=== PATIENT | female | born 1995 | race American Indian/Alaskan Native ===

== ENCOUNTER 2021-09-05 22:32 | Outpatient (CLI) | payer MEDICAID, OTHER ==
[2021-09-05 23:12] VITALS: BP 111/80
[2021-09-06] MEDS: LACTATED RINGERS 1,000 ML IV SCH ×2 (00:11→01:14)
[2021-09-06 00:36] LABS: Basophils % (Auto) 0.1 % (0.0-1.8); Eosinophils % (Auto) 0.2 % (0.0-4.3); Hematocrit 35.1 % (30.3-42.9); Hemoglobin 11.4 gm/dl (10.1-14.3); Lymphocytes # (Auto) 2.5 K/mm3 (1.2-5.4); Lymphocytes % (Auto) 22.6 % (13.4-35.0); Mean Corpuscular HGB Conc 33 % (30-34); Mean Corpuscular Volume 81 fl (79-97); Monocytes # (Auto) 1.2 K/mm3 (0.0-0.8); Monocytes % (Auto) 11.1 % (0.0-7.3); Platelet Count 196 K/mm3 (140-440); Red Blood Count 4.34 M/mm3 (3.65-5.03); Red Cell Distribution Width 16.3 % (13.2-15.2)
[2021-09-06 00:42] LABS: Amphetamine Screen,Urine PRESUMPTIVE NEGATIVE; Bacteria,Urine 1+ /HPF (Negative); Benzodiazepines Screen,Urine PRESUMPTIVE NEGATIVE; Bilirubin,Urine NEG (Negative); Blood,Urine NEG (Negative); Cannabinoid Screen,Urine PRESUMPTIVE NEGATIVE; Cocaine Screen,Urine PRESUMPTIVE NEGATIVE; Color,Urine Yellow (Yellow); Methadone Screen,Urine PRESUMPTIVE NEGATIVE; Opiate Screen,Urine PRESUMPTIVE NEGATIVE; Protein,Urine <15 mg/dL mg/dL (Negative); Urobilinogen,Urine < 2.0 mg/dL (<2.0)
--- NOTE | 2021-09-06 02:32 | Ultrasound Report ---
ULTRASOUND OBSTETRIC LIMITED; BIOPHYSICAL PROFILE INDICATION / CLINICAL INFORMATION: SD, location of placenta, integrity of placenta... Clinical Gestational Age (GA) in weeks, days: 37, 6 TECHNIQUE: Transabdominal. COMPARISON: None available. FINDINGS: HEART RATE (beats per minute): 157 AMNIOTIC FLUID INDEX (cm) = 9.3 cm (normal = 7-24 cm) PRESENTATION: Cephalic. ADDITIONAL FINDINGS: Right lateral placenta. Placenta is grade 1. BREATHING MOVEMENT = 2 GROSS BODY MOVEMENT = 2 TONE = 2 QUALITATIVE AMNIOTIC FLUID VOLUME = 2 TOTAL BIOPHYSICAL SCORE = 8/8 IMPRESSION: 1. Right lateral grade 1 placenta. 2. 37 week 6 day gestation with heart rate of 157 bpm. Normal SD. 3. Normal biophysical profile. Signer Name: Rafa Torres II, MD Signed: 09/06/2021 2:28 AM Workstation Name: [id number]
== END 2021-09-06 03:43 | disposition home or self-care (01) ==
LOC: TRG 22:32 → APU 22:35 → TRG 09-06 03:43
PROVIDERS: ATTEND Obstetrics & Gynecology
DX: O36.8130 Decreased fetal movements, third trimester, not applicable or unspecified (principal); Z3A.37 37 weeks gestation of pregnancy
CPT/HCPCS: 36415; 76815; 76819; 80307; 81001; 85025; 86850; 86900; 86901; J7120

== ENCOUNTER 2021-09-20 00:25 | Inpatient (IN) | payer MEDICAID ==
[2021-09-20 02:03] LABS: Basophils % (Auto) 0.2 % (0.0-1.8); Eosinophils % (Auto) 0.1 % (0.0-4.3); Hematocrit 36.2 % (30.3-42.9); Hemoglobin 11.6 gm/dl (10.1-14.3); Lymphocytes # (Auto) 2.5 K/mm3 (1.2-5.4); Lymphocytes % (Auto) 20.7 % (13.4-35.0); Mean Corpuscular HGB Conc 32 % (30-34); Mean Corpuscular Volume 81 fl (79-97); Monocytes % (Auto) 8.2 % (0.0-7.3); Platelet Count 208 K/mm3 (140-440); Red Blood Count 4.49 M/mm3 (3.65-5.03); Red Cell Distribution Width 16.1 % (13.2-15.2)
[2021-09-20] MEDS ORDERED: LACTATED RINGERS 1,000 ML ONE (02:30)
[2021-09-20 02:52] LABS: Bilirubin,Urine NEG (Negative); Blood,Urine SM (Negative); Color,Urine Yellow (Yellow); Mucus,Urine FEW /HPF; Protein,Urine <15 mg/dL mg/dL (Negative); RBC,Urine < 1.0 /HPF (0.0-6.0); Urobilinogen,Urine < 2.0 mg/dL (<2.0)
[2021-09-20 03:21] LABS: Amphetamine Screen,Urine Negative; Benzodiazepines Screen,Urine Negative; Cannabinoid Screen,Urine Negative; Cocaine Screen,Urine Negative; Methadone Screen,Urine Negative; Opiate Screen,Urine Negative
--- NOTE | 2021-09-20 03:45 | Ultrasound Report ---
ULTRASOUND OBSTETRIC LIMITED ULTRASOUND BIOPHYSICAL PROFILE INDICATION / CLINICAL INFORMATION: wellbeing. Clinical Gestational Age (GA) in weeks, days: 39 weeks 6 days TECHNIQUE: Transabdominal. COMPARISON: 09/06/2021 FINDINGS: BREATHING MOVEMENT = 2 GROSS BODY MOVEMENT = 2 TONE = 2 QUALITATIVE AMNIOTIC FLUID VOLUME = 0 TOTAL BIOPHYSICAL SCORE = 6/8 HEART RATE (beats per minute): 157 AMNIOTIC FLUID INDEX (cm) = 3.2 (normal = 7-24 cm) PRESENTATION: Cephalic. ADDITIONAL FINDINGS: Placenta is located right lateral, grade 3. No evidence of abruption. IMPRESSION: 1. Biophysical Score = 6/8 2. Oligohydramnios with SD of 3.2 cm 2. Single viable IUP,cephalic presentation Signer Name: Nicki Winslow MD Signed: 09/20/2021 3:40 AM Workstation Name: [id number]
[2021-09-20] MEDS ORDERED: ACETAMINOPHEN 325 MG TAB PO PRN ×2 (04:00→17:08)
[2021-09-20] MEDS ORDERED: AMPICILLIN/NS 2 GM/100 ML 2 GM/100 ML BAG IV ONE (04:00)
[2021-09-20] MEDS ORDERED: LIDOCAINE (2%) 20 MG/1 ML VIAL 20 ML MDV INFILTRATI ONE ×3 (04:00→16:44)
[2021-09-20] MEDS ORDERED: ePHEDrine SULFATE 50 MG/1 ML INJ IV PRN (04:00)
[2021-09-20] MEDS ORDERED: NalbUPHINE 10 MG/1 ML INJ IV PRN (04:00)
[2021-09-20] MEDS ORDERED: LOPERAMIDE 2 MG CAP PO PRN (04:00)
[2021-09-20] MEDS ORDERED: OXYTOCIN 10 UNIT/1 ML INJ IM PRN (04:00)
[2021-09-20] MEDS ORDERED: miSOPROStol 200 MCG TAB PR PRN (04:00)
[2021-09-20] MEDS ORDERED: METHYLERGONOVINE MALEATE 0.2 MG/ML VIAL IM PRN (04:00)
[2021-09-20] MEDS ORDERED: MINERAL OIL 30 ML ORAL LIQD PO PRN (04:00)
[2021-09-20] MEDS ORDERED: OXYTOCIN DRIP 30 UNITS/500 ML BAG IV SCH ×2 (04:00→08:00)
[2021-09-20] MEDS ORDERED: CARBOPROST TROMETHAMINE 250 MCG/1 ML INJ IM PRN (04:00)
[2021-09-20] MEDS ORDERED: TERBUTALINE 1 MG/1 ML INJ SUB-Q PRN (04:00)
--- NOTE | 2021-09-20 04:10 | History and Physical Report ---
History of Present Illness Date of examination: 09/20/21 Date of admission: 09/20/2021 Chief complaint: Contractions History of present illness: 26 year old presents to L&D with complaint of contractions. Patient states contractions started at 9:30 PM last night. Patient denies leaking of fluid. She reports small amount of bloody show. She reports active movement. Patient states she receives care at [facility] but no records are available. Will request records. EDC 09/21/21 per patient report. LMP 12/15/20. labs were drawn upon admission. US in triage showed SD of 3.2 cm and BPP 6/8. US shows no sign of abruption. 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 denies: smoking, alcohol abuse, prescription drug abuse, IV drug use - Obstetrical History Expected Date of Delivery: 09/21/21 Actual Gestation: 39 Week(s) 6 Day(s) : 1 Para: 0 Hx # Term Pregnancies: 0 Number of Pregnancies: 0 Spontaneous Abortions: 0 Induced : 0 Number of Living Children: 0 Medications and Allergies Allergies Allergy/AdvReac Type Severity Reaction Status Date / Time No Known Allergies Allergy Verified 09/20/21 00:54 Home Medications Medication Instructions Recorded Confirmed Last Taken Type No Known Home Medications [No 09/05/21 09/05/21 Unknown History Reported Home Medications] Active Meds: Active Medications Acetaminophen (Acetaminophen 325 Mg Tab) 650 mg PO Q4H PRN PRN Reason: Pain, Mild (1-3) Carboprost Tromethamine (Carboprost Tromethamine 250 Mcg/1 Ml Inj) 250 mcg IM ONCE PRN PRN Reason: Uterine Bleeding Ephedrine Sulfate (Ephedrine Sulfate 50 Mg/1 Ml Inj) 10 mg IV Q2M PRN PRN Reason: Hypotension Fentanyl (Fentanyl 100 Mcg/2 Ml Inj) 100 mcg IV Q2H PRN PRN Reason: Pain,Severe (7-10) LABOR PAIN Lactated Ringer's (Lactated Ringers) 1,000 mls @ 125 mls/hr IV DIRECT JAMEE Oxytocin/Sodium Chloride (Pitocin/Ns 30 Unit/500ml) 30 units in 500 mls @ 40 mls/hr IV TITR JAMEE; Protocol Ampicillin Sodium (Ampicillin/Ns 2 Gm/100 Ml) 2 gm in 100 mls @ 100 mls/hr IV ONCE ONE; Protocol Stop: 09/20/21 04:59 Ampicillin Sodium (Ampicillin/Ns 1 Gm/50 Ml) 1 gm in 50 mls @ 100 mls/hr IV Q4H JAMEE; Protocol Lidocaine (Lidocaine (2%) 20 Mg/1 Ml Vial 20 Ml Mdv) 20 ml INFILTRATI ONCE ONE Stop: 09/20/21 04:01 Loperamide HCl (Loperamide 2 Mg Cap) 2 mg PO ONCE PRN PRN Reason: give with Hemabate Methylergonovine Maleate (Methylergonovine Maleate 0.2 Mg/Ml Vial) 0.2 mg IM ONCE PRN PRN Reason: Uterine Bleeding Mineral Oil (Mineral Oil 30 Ml Oral Liqd) 30 ml PO QHS PRN PRN Reason: Constipation Misoprostol (Misoprostol 200 Mcg Tab) 800 mcg MI ONCE PRN PRN Reason: Uterine Bleeding Nalbuphine HCl (Nalbuphine 10 Mg/1 Ml Inj) 10 mg IV Q2H PRN PRN Reason: Pain, Moderate (4-6) Oxytocin (Oxytocin 10 Unit/1 Ml Inj) 10 unit IM ONCE PRN PRN Reason: Uterine Bleeding Terbutaline Sulfate (Terbutaline 1 Mg/1 Ml Inj) 0.25 mg SUB-Q ONCE PRN PRN Reason: Hyperstimulation/Hypertonicity Review of Systems All systems: negative (contractions) - Vital Signs Vital signs: Vital Signs Pulse Ox 100 09/06/21 03:09 Temp Pulse Resp BP Pulse Ox 85 112/71 98 09/20/21 04:03 09/20/21 00:50 09/20/21 04:03 - Physical Exam Abdomen: Positive: normal appearance, soft. Negative: distention, tenderness, guarding, rigidity Genitourinary (Female): Positive: normal external genitalia, normal perenium. Negative: perineal/vulvar lesions Vagina: Positive: normal moisture Uterus: Positive: enlarged. Negative: tender Anus/Rectum: Positive: normal perianal skin Extremities: Negative: tenderness, edema - Obstetrical FHR: category 2 (variable FHR decelerations with rapid return to normal FHR baseline with moderate variability) Uterine Contraction Monitor Mode: External Cervical Dilatation: 0 Cervical Effacement Percentage: 50 station: -2 Uterine Contraction Pattern: Irregular Uterine Contraction Intensity: Mild Results Result Diagrams: 09/20/21 01:45 Abnormal lab results 09/20/21 Range/Units 01:45 WBC 11.8 H (4.5-11.0) K/mm3 MCH 26 L (28-32) pg RDW 16.1 H (13.2-15.2) % [place] % (Auto) 8.2 H (0.0-7.3) % [place] # (Auto) 1.0 H (0.0-0.8) K/mm3 Seg Neutrophils % 70.8 H (40.0-70.0) % Seg Neutrophils # 8.4 H (1.8-7.7) K/mm3 All other labs normal. Assessment and Plan A: at 39 weeks, 6 days gestation. Oligohydramnios. BPP 6/8. No records available. GBS unknown. Category 2 FHR tracing. P: Admit. Continuous EFM. Request/obtain records. US to calculate EDC/EGA, EFW. Draw labs. IV hydration. Lateral positioning. Will consult with re: this patient.
[2021-09-20] MEDS: LACTATED RINGERS 1,000 ML IV SCH ×2 (04:52→15:58)
--- NOTE | 2021-09-20 05:01 | Event Note ---
Date: 09/20/21 for EGA this morning shows EGA of 35 weeks, 1 day. Requesting records. Continuous EFM and IV hydration until records are obtained. Consulted with Dr. Lim re: this patient.
--- NOTE | 2021-09-20 05:08 | Ultrasound Report ---
ULTRASOUND OBSTETRIC LIMITED INDICATION / CLINICAL INFORMATION: EDC/EGA, EFW. Clinical Gestational Age (GA) in weeks, days: 39 weeks 6 days TECHNIQUE: Transabdominal. COMPARISON: 09/20/2021 Limited OB ultrasound FINDINGS: NUMBER: Single PRESENTATION: cephalic PLACENTA: Right lateral and free of the os. AMNIOTIC FLUID VOLUME: decreased AMNIOTIC FLUID INDEX (SD) in cm (if measured): 3.2 cm MEASUREMENTS: - Biparietal Diameter = 8.85 cm = 35 weeks, 5 days - Head Circumference = 30.55 cm = 34 weeks, 0 days - Abdominal Circumference = 32.19 cm = 36 weeks, 1 days - Femur Length = 6.69 cm = 34 weeks, 3 days - Estimated Weight (in grams, if calculated): 2670 g (5 lbs. 14 oz.) - Heart Rate (beats per minute): 158 ADDITIONAL FINDINGS: None. PERCENTILE ESTIMATED WEIGHT (if calculated): AVERAGE ULTRASOUND AGE (AUA) in weeks, days = 35 weeks 1 day IMPRESSION: 1. Single intrauterine with AUA of 35 weeks, 1 days 2. As noted on earlier OB ultrasound, there is oligohydramnios with an SD of 3.2. 3. There is a 4 week discrepancy between clinical dates and sonographic dates. Signer Name: Nicki Winslow MD Signed: 09/20/2021 5:04 AM Workstation Name: [id number]
[2021-09-20] MEDS ORDERED: BETAMET ACET/BETAMET NA PH 6 MG/ML INJ 5 ML MDV IM ONE (05:31)
[2021-09-20 06:58] LABS: Hepatitis C Virus Antibody Non-Reactive (NonReactive)
--- NOTE | 2021-09-20 07:22 | Progress Note ---
Subjective - Subjective Date of service: 09/20/21 Interval history: Olig Suspected early chorio IUGR plan for delivery Crystal Lim MD Objective - Vital Signs Vital Signs: Vital Signs - 12hr 09/20/21 09/20/21 09/20/21 00:49 00:50 00:54 Temperature Pulse Rate 107 H 98 H 102 H Blood Pressure 112/71 O2 Sat by Pulse 100 99 Oximetry O2 Sat by Pulse Oximetry [ Throughout] 09/20/21 09/20/21 09/20/21 00:59 01:04 01:09 Temperature Pulse Rate 96 H 106 H 90 Blood Pressure O2 Sat by Pulse 99 97 100 Oximetry O2 Sat by Pulse Oximetry [ Throughout] 09/20/21 09/20/21 09/20/21 01:14 01:19 01:24 Temperature Pulse Rate 84 88 89 Blood Pressure O2 Sat by Pulse 95 98 100 Oximetry O2 Sat by Pulse Oximetry [ Throughout] 09/20/21 09/20/21 09/20/21 01:29 01:34 01:39 Temperature Pulse Rate 86 84 100 H Blood Pressure O2 Sat by Pulse 100 100 98 Oximetry O2 Sat by Pulse Oximetry [ Throughout] 09/20/21 09/20/21 09/20/21 01:44 01:49 01:54 Temperature Pulse Rate 99 H 82 83 Blood Pressure O2 Sat by Pulse 98 100 98 Oximetry O2 Sat by Pulse Oximetry [ Throughout] 09/20/21 09/20/21 09/20/21 01:59 02:04 02:09 Temperature Pulse Rate 79 85 79 Blood Pressure O2 Sat by Pulse 100 98 99 Oximetry O2 Sat by Pulse Oximetry [ Throughout] 09/20/21 09/20/21 09/20/21 02:14 02:19 02:24 Temperature Pulse Rate 78 79 81 Blood Pressure O2 Sat by Pulse 99 100 99 Oximetry O2 Sat by Pulse Oximetry [ Throughout] 09/20/21 09/20/21 09/20/21 02:29 02:43 02:48 Temperature Pulse Rate 86 91 H 90 Blood Pressure O2 Sat by Pulse 97 100 99 Oximetry O2 Sat by Pulse Oximetry [ Throughout] 09/20/21 09/20/21 09/20/21 02:53 02:58 03:03 Temperature Pulse Rate 73 77 67 Blood Pressure O2 Sat by Pulse 99 98 99 Oximetry O2 Sat by Pulse Oximetry [ Throughout] 09/20/21 09/20/21 09/20/21 03:08 03:13 03:18 Temperature Pulse Rate 80 88 75 Blood Pressure O2 Sat by Pulse 98 99 98 Oximetry O2 Sat by Pulse Oximetry [ Throughout] 09/20/21 09/20/21 09/20/21 03:23 03:28 03:33 Temperature Pulse Rate 76 85 97 H Blood Pressure O2 Sat by Pulse 98 99 98 Oximetry O2 Sat by Pulse Oximetry [ Throughout] 09/20/21 09/20/21 09/20/21 03:38 03:43 03:48 Temperature Pulse Rate 82 82 86 Blood Pressure O2 Sat by Pulse 100 99 98 Oximetry O2 Sat by Pulse Oximetry [ Throughout] 09/20/21 09/20/21 09/20/21 03:53 03:58 04:03 Temperature Pulse Rate 79 79 85 Blood Pressure O2 Sat by Pulse 99 98 98 Oximetry O2 Sat by Pulse Oximetry [ Throughout] 09/20/21 09/20/21 09/20/21 04:36 04:41 04:43 Temperature Pulse Rate 77 75 78 Blood Pressure 128/79 O2 Sat by Pulse 99 98 Oximetry O2 Sat by Pulse Oximetry [ Throughout] 09/20/21 09/20/21 09/20/21 04:46 04:51 04:53 Temperature 99.2 F Pulse Rate 86 80 Blood Pressure O2 Sat by Pulse 99 99 Oximetry O2 Sat by Pulse 99 Oximetry [ Throughout] 09/20/21 09/20/21 09/20/21 04:56 05:01 05:06 Temperature Pulse Rate 88 98 H 91 H Blood Pressure O2 Sat by Pulse 99 98 98 Oximetry O2 Sat by Pulse Oximetry [ Throughout] 09/20/21 09/20/21 09/20/21 05:11 05:16 05:21 Temperature Pulse Rate 86 81 93 H Blood Pressure O2 Sat by Pulse 98 98 98 Oximetry O2 Sat by Pulse Oximetry [ Throughout] 09/20/21 09/20/21 09/20/21 05:26 05:31 05:36 Temperature Pulse Rate 97 H 85 93 H Blood Pressure O2 Sat by Pulse 98 98 98 Oximetry O2 Sat by Pulse Oximetry [ Throughout] 09/20/21 09/20/21 09/20/21 05:41 05:46 05:51 Temperature Pulse Rate 85 91 H 91 H Blood Pressure O2 Sat by Pulse 98 98 98 Oximetry O2 Sat by Pulse Oximetry [ Throughout] 09/20/21 09/20/21 09/20/21 05:56 06:01 06:06 Temperature Pulse Rate 87 91 H 87 Blood Pressure O2 Sat by Pulse 98 98 98 Oximetry O2 Sat by Pulse Oximetry [ Throughout] 09/20/21 09/20/21 09/20/21 06:11 06:16 06:21 Temperature Pulse Rate 76 87 89 Blood Pressure O2 Sat by Pulse 98 98 98 Oximetry O2 Sat by Pulse Oximetry [ Throughout] 09/20/21 09/20/21 09/20/21 06:26 06:31 06:36 Temperature Pulse Rate 73 87 98 H Blood Pressure O2 Sat by Pulse 99 98 97 Oximetry O2 Sat by Pulse Oximetry [ Throughout] 09/20/21 09/20/21 09/20/21 06:41 06:46 06:51 Temperature Pulse Rate 85 79 88 Blood Pressure O2 Sat by Pulse 98 98 97 Oximetry O2 Sat by Pulse Oximetry [ Throughout] 09/20/21 09/20/21 09/20/21 06:56 07:01 07:06 Temperature Pulse Rate 86 82 71 Blood Pressure O2 Sat by Pulse 98 99 98 Oximetry O2 Sat by Pulse Oximetry [ Throughout] 09/20/21 09/20/21 07:11 07:16 Temperature Pulse Rate 78 83 Blood Pressure O2 Sat by Pulse 99 98 Oximetry O2 Sat by Pulse Oximetry [ Throughout] - Labs Labs: Abnormal Labs 09/20/21 01:45 WBC 11.8 H MCH 26 L RDW 16.1 H [place] % (Auto) 8.2 H [place] # (Auto) 1.0 H Seg Neutrophils % 70.8 H Seg Neutrophils # 8.4 H Laboratory Results - last 24 hr 09/20/21 09/20/21 09/20/21 01:45 01:45 05:27 WBC 11.8 H RBC 4.49 Hgb 11.6 Hct 36.2 MCV 81 MCH 26 L MCHC 32 RDW 16.1 H Plt Count 208 Lymph % (Auto) 20.7 [place] % (Auto) 8.2 H Eos % (Auto) 0.1 Baso % (Auto) 0.2 Lymph # (Auto) 2.5 [place] # (Auto) 1.0 H Eos # (Auto) 0.0 Baso # (Auto) 0.0 Seg Neutrophils % 70.8 H Seg Neutrophils # 8.4 H Hemoglobin A1c 5.5 Urine Color Urine Turbidity Urine pH Ur Specific [place] Urine Protein Urine Glucose (UA) Urine Ketones Urine Blood Urine Nitrite Urine Bilirubin Urine Urobilinogen Ur Leukocyte Esterase Urine WBC (Auto) Urine RBC (Auto) U Epithel Cells (Auto) Urine Mucus Urine Opiates Screen Urine Methadone Screen Ur Barbiturates Screen Ur Phencyclidine Scrn Ur Amphetamines Screen U Benzodiazepines Scrn Urine Cocaine Screen U Marijuana (THC) Screen Drugs of Abuse Note Syphilis IgG/IgM Ab Hep Bs Antigen Hepatitis C Antibody HIV 1&2 Antibody Rapid HIV P24 Antigen Rubella IgG Antibody Blood Type B POSITIVE Antibody Screen Negative 09/20/21 09/20/21 09/20/21 05:27 05:27 05:27 WBC RBC Hgb Hct MCV MCH MCHC RDW Plt Count Lymph % (Auto) [place] % (Auto) Eos % (Auto) Baso % (Auto) Lymph # (Auto) [place] # (Auto) Eos # (Auto) Baso # (Auto) Seg Neutrophils % Seg Neutrophils # Hemoglobin A1c Urine Color Urine Turbidity Urine pH Ur Specific [place] Urine Protein Urine Glucose (UA) Urine Ketones Urine Blood Urine Nitrite Urine Bilirubin Urine Urobilinogen Ur Leukocyte Esterase Urine WBC (Auto) Urine RBC (Auto) U Epithel Cells (Auto) Urine Mucus Urine Opiates Screen Urine Methadone Screen Ur Barbiturates Screen Ur Phencyclidine Scrn Ur Amphetamines Screen U Benzodiazepines Scrn Urine Cocaine Screen U Marijuana (THC) Screen Drugs of Abuse Note Syphilis IgG/IgM Ab Nonreactive Hep Bs Antigen Non-reactive Hepatitis C Antibody Non-reactive HIV 1&2 Antibody Rapid Non react HIV P24 Antigen Non react Rubella IgG Antibody Immune Blood Type Antibody Screen 09/20/21 09/20/21 Unknown Unknown WBC RBC Hgb Hct MCV MCH MCHC RDW Plt Count Lymph % (Auto) [place] % (Auto) Eos % (Auto) Baso % (Auto) Lymph # (Auto) [place] # (Auto) Eos # (Auto) Baso # (Auto) Seg Neutrophils % Seg Neutrophils # Hemoglobin A1c Urine Color Yellow Urine Turbidity Clear Urine pH 6.0 Ur Specific [place] 1.004 Urine Protein <15 mg/dl Urine Glucose (UA) Neg Urine Ketones Neg Urine Blood Sm Urine Nitrite Neg Urine Bilirubin Neg Urine Urobilinogen < 2.0 Ur Leukocyte Esterase Neg Urine WBC (Auto) 1.0 Urine RBC (Auto) < 1.0 U Epithel Cells (Auto) 2.0 Urine Mucus Few Urine Opiates Screen Negative Urine Methadone Screen Negative Ur Barbiturates Screen Negative Ur Phencyclidine Scrn Negative Ur Amphetamines Screen Negative U Benzodiazepines Scrn Negative Urine Cocaine Screen Negative U Marijuana (THC) Screen Negative Drugs of Abuse Note Disclamer Syphilis IgG/IgM Ab Hep Bs Antigen Hepatitis C Antibody HIV 1&2 Antibody Rapid HIV P24 Antigen Rubella IgG Antibody Blood Type Antibody Screen
--- NOTE | 2021-09-20 07:39 | Event Note ---
Date: 09/20/21 FHR 170s with moderate variability. Maternal temp. 99.1. Changed antibiotics to ampicillin and gentamicin. IV fluid bolus and tylenol ordered. ROM plus done (pt. has denied LOF). Pitocin for augmentation of labor. Small amount of pink vaginal discharge noted on rom plus swab. Consulted with Dr. Lim re: tachycardia and pink discharge and interventions done.
[2021-09-20] MEDS ORDERED: GENTAMICIN 100 MG in SODIUM CHLORIDE 0.9% 100 ML IV SCH ×2 (07:45→07:52)
[2021-09-20] MEDS ORDERED: LACTATED RINGERS 500 ML IV ONE (08:00)
[2021-09-20] MEDS ORDERED: AMPICILLIN/NS 2 GM/100 ML 2 GM/100 ML BAG IV SCH (08:00)
--- NOTE | 2021-09-20 08:47 | Progress Note ---
Subjective - Subjective Date of service: 09/20/21 Interval history: FHT Cat 2 with moderate variability cervix 280/-1 Continue current management Crystal Lim MD Objective - Vital Signs Vital Signs: Vital Signs - 12hr 09/20/21 09/20/21 09/20/21 00:49 00:50 00:54 Temperature Pulse Rate 107 H 98 H 102 H Respiratory Rate Blood Pressure 112/71 Blood Pressure [Left] O2 Sat by Pulse 100 99 Oximetry O2 Sat by Pulse Oximetry [ Throughout] 09/20/21 09/20/21 09/20/21 00:59 01:04 01:09 Temperature Pulse Rate 96 H 106 H 90 Respiratory Rate Blood Pressure Blood Pressure [Left] O2 Sat by Pulse 99 97 100 Oximetry O2 Sat by Pulse Oximetry [ Throughout] 09/20/21 09/20/21 09/20/21 01:14 01:19 01:24 Temperature Pulse Rate 84 88 89 Respiratory Rate Blood Pressure Blood Pressure [Left] O2 Sat by Pulse 95 98 100 Oximetry O2 Sat by Pulse Oximetry [ Throughout] 09/20/21 09/20/21 09/20/21 01:29 01:34 01:39 Temperature Pulse Rate 86 84 100 H Respiratory Rate Blood Pressure Blood Pressure [Left] O2 Sat by Pulse 100 100 98 Oximetry O2 Sat by Pulse Oximetry [ Throughout] 09/20/21 09/20/21 09/20/21 01:44 01:49 01:54 Temperature Pulse Rate 99 H 82 83 Respiratory Rate Blood Pressure Blood Pressure [Left] O2 Sat by Pulse 98 100 98 Oximetry O2 Sat by Pulse Oximetry [ Throughout] 09/20/21 09/20/21 09/20/21 01:59 02:04 02:09 Temperature Pulse Rate 79 85 79 Respiratory Rate Blood Pressure Blood Pressure [Left] O2 Sat by Pulse 100 98 99 Oximetry O2 Sat by Pulse Oximetry [ Throughout] 09/20/21 09/20/21 09/20/21 02:14 02:19 02:24 Temperature Pulse Rate 78 79 81 Respiratory Rate Blood Pressure Blood Pressure [Left] O2 Sat by Pulse 99 100 99 Oximetry O2 Sat by Pulse Oximetry [ Throughout] 09/20/21 09/20/21 09/20/21 02:29 02:43 02:48 Temperature Pulse Rate 86 91 H 90 Respiratory Rate Blood Pressure Blood Pressure [Left] O2 Sat by Pulse 97 100 99 Oximetry O2 Sat by Pulse Oximetry [ Throughout] 09/20/21 09/20/21 09/20/21 02:53 02:58 03:03 Temperature Pulse Rate 73 77 67 Respiratory Rate Blood Pressure Blood Pressure [Left] O2 Sat by Pulse 99 98 99 Oximetry O2 Sat by Pulse Oximetry [ Throughout] 09/20/21 09/20/21 09/20/21 03:08 03:13 03:18 Temperature Pulse Rate 80 88 75 Respiratory Rate Blood Pressure Blood Pressure [Left] O2 Sat by Pulse 98 99 98 Oximetry O2 Sat by Pulse Oximetry [ Throughout] 09/20/21 09/20/21 09/20/21 03:23 03:28 03:33 Temperature Pulse Rate 76 85 97 H Respiratory Rate Blood Pressure Blood Pressure [Left] O2 Sat by Pulse 98 99 98 Oximetry O2 Sat by Pulse Oximetry [ Throughout] 09/20/21 09/20/21 09/20/21 03:38 03:43 03:48 Temperature Pulse Rate 82 82 86 Respiratory Rate Blood Pressure Blood Pressure [Left] O2 Sat by Pulse 100 99 98 Oximetry O2 Sat by Pulse Oximetry [ Throughout] 09/20/21 09/20/21 09/20/21 03:53 03:58 04:03 Temperature Pulse Rate 79 79 85 Respiratory Rate Blood Pressure Blood Pressure [Left] O2 Sat by Pulse 99 98 98 Oximetry O2 Sat by Pulse Oximetry [ Throughout] 09/20/21 09/20/21 09/20/21 04:36 04:41 04:43 Temperature Pulse Rate 77 75 78 Respiratory Rate Blood Pressure 128/79 Blood Pressure [Left] O2 Sat by Pulse 99 98 Oximetry O2 Sat by Pulse Oximetry [ Throughout] 09/20/21 09/20/21 09/20/21 04:46 04:51 04:53 Temperature 99.2 F Pulse Rate 86 80 Respiratory Rate Blood Pressure Blood Pressure [Left] O2 Sat by Pulse 99 99 Oximetry O2 Sat by Pulse 99 Oximetry [ Throughout] 09/20/21 09/20/21 09/20/21 04:56 05:01 05:06 Temperature Pulse Rate 88 98 H 91 H Respiratory Rate Blood Pressure Blood Pressure [Left] O2 Sat by Pulse 99 98 98 Oximetry O2 Sat by Pulse Oximetry [ Throughout] 09/20/21 09/20/21 09/20/21 05:11 05:16 05:21 Temperature Pulse Rate 86 81 93 H Respiratory Rate Blood Pressure Blood Pressure [Left] O2 Sat by Pulse 98 98 98 Oximetry O2 Sat by Pulse Oximetry [ Throughout] 09/20/21 09/20/21 09/20/21 05:26 05:31 05:36 Temperature Pulse Rate 97 H 85 93 H Respiratory Rate Blood Pressure Blood Pressure [Left] O2 Sat by Pulse 98 98 98 Oximetry O2 Sat by Pulse Oximetry [ Throughout] 09/20/21 09/20/21 09/20/21 05:41 05:46 05:51 Temperature Pulse Rate 85 91 H 91 H Respiratory Rate Blood Pressure Blood Pressure [Left] O2 Sat by Pulse 98 98 98 Oximetry O2 Sat by Pulse Oximetry [ Throughout] 09/20/21 09/20/21 09/20/21 05:56 06:01 06:06 Temperature Pulse Rate 87 91 H 87 Respiratory Rate Blood Pressure Blood Pressure [Left] O2 Sat by Pulse 98 98 98 Oximetry O2 Sat by Pulse Oximetry [ Throughout] 09/20/21 09/20/21 09/20/21 06:11 06:16 06:21 Temperature Pulse Rate 76 87 89 Respiratory Rate Blood Pressure Blood Pressure [Left] O2 Sat by Pulse 98 98 98 Oximetry O2 Sat by Pulse Oximetry [ Throughout] 09/20/21 09/20/21 09/20/21 06:26 06:31 06:36 Temperature Pulse Rate 73 87 98 H Respiratory Rate Blood Pressure Blood Pressure [Left] O2 Sat by Pulse 99 98 97 Oximetry O2 Sat by Pulse Oximetry [ Throughout] 09/20/21 09/20/21 09/20/21 06:41 06:46 06:51 Temperature Pulse Rate 85 79 88 Respiratory Rate Blood Pressure Blood Pressure [Left] O2 Sat by Pulse 98 98 97 Oximetry O2 Sat by Pulse Oximetry [ Throughout] 09/20/21 09/20/21 09/20/21 06:56 07:01 07:06 Temperature Pulse Rate 86 82 71 Respiratory Rate Blood Pressure Blood Pressure [Left] O2 Sat by Pulse 98 99 98 Oximetry O2 Sat by Pulse Oximetry [ Throughout] 09/20/21 09/20/21 09/20/21 07:11 07:16 07:21 Temperature Pulse Rate 78 83 76 Respiratory Rate Blood Pressure Blood Pressure [Left] O2 Sat by Pulse 99 98 98 Oximetry O2 Sat by Pulse Oximetry [ Throughout] 0309/20/21 09/20/21 07:26 07:31 07:36 Temperature Pulse Rate 89 84 90 Respiratory Rate Blood Pressure Blood Pressure [Left] O2 Sat by Pulse 97 99 98 Oximetry O2 Sat by Pulse Oximetry [ Throughout] 09/20/21 09/20/21 09/20/21 07:41 07:46 07:51 Temperature Pulse Rate 87 74 78 Respiratory Rate Blood Pressure Blood Pressure [Left] O2 Sat by Pulse 98 98 98 Oximetry O2 Sat by Pulse Oximetry [ Throughout] 09/20/21 09/20/21 09/20/21 07:56 08:19 08:21 Temperature Pulse Rate 90 73 91 H Respiratory Rate Blood Pressure 116/65 Blood Pressure [Left] O2 Sat by Pulse 98 98 Oximetry O2 Sat by Pulse Oximetry [ Throughout] 09/20/21 09/20/21 09/20/21 08:24 08:29 08:34 Temperature 97.9 F Pulse Rate 68 73 90 Respiratory 16 Rate Blood Pressure Blood Pressure 116/65 [Left] O2 Sat by Pulse 98 99 98 Oximetry O2 Sat by Pulse 99 Oximetry [ Throughout] 09/20/21 09/20/21 08:39 08:44 Temperature Pulse Rate 77 73 Respiratory Rate Blood Pressure Blood Pressure [Left] O2 Sat by Pulse 99 99 Oximetry O2 Sat by Pulse Oximetry [ Throughout] - Labs Labs: Abnormal Labs 09/20/21 01:45 WBC 11.8 H MCH 26 L RDW 16.1 H [place] % (Auto) 8.2 H [place] # (Auto) 1.0 H Seg Neutrophils % 70.8 H Seg Neutrophils # 8.4 H Laboratory Results - last 24 hr 09/20/21 09/20/21 09/20/21 01:45 01:45 05:27 WBC 11.8 H RBC 4.49 Hgb 11.6 Hct 36.2 MCV 81 MCH 26 L MCHC 32 RDW 16.1 H Plt Count 208 Lymph % (Auto) 20.7 [place] % (Auto) 8.2 H Eos % (Auto) 0.1 Baso % (Auto) 0.2 Lymph # (Auto) 2.5 [place] # (Auto) 1.0 H Eos # (Auto) 0.0 Baso # (Auto) 0.0 Seg Neutrophils % 70.8 H Seg Neutrophils # 8.4 H Hemoglobin A1c 5.5 Urine Color Urine Turbidity Urine pH Ur Specific Delia Urine Protein Urine Glucose (UA) Urine Ketones Urine Blood Urine Nitrite Urine Bilirubin Urine Urobilinogen Ur Leukocyte Esterase Urine WBC (Auto) Urine RBC (Auto) U Epithel Cells (Auto) Urine Mucus Urine Opiates Screen Urine Methadone Screen Ur Barbiturates Screen Ur Phencyclidine Scrn Ur Amphetamines Screen U Benzodiazepines Scrn Urine Cocaine Screen U Marijuana (THC) Screen Drugs of Abuse Note Syphilis IgG/IgM Ab Hep Bs Antigen Hepatitis C Antibody HIV 1&2 Antibody Rapid HIV P24 Antigen Rubella IgG Antibody Blood Type B POSITIVE Antibody Screen Negative 09/20/21 09/20/21 09/20/21 05:27 05:27 05:27 WBC RBC Hgb Hct MCV MCH MCHC RDW Plt Count Lymph % (Auto) [place] % (Auto) Eos % (Auto) Baso % (Auto) Lymph # (Auto) [place] # (Auto) Eos # (Auto) Baso # (Auto) Seg Neutrophils % Seg Neutrophils # Hemoglobin A1c Urine Color Urine Turbidity Urine pH Ur Specific Delia Urine Protein Urine Glucose (UA) Urine Ketones Urine Blood Urine Nitrite Urine Bilirubin Urine Urobilinogen Ur Leukocyte Esterase Urine WBC (Auto) Urine RBC (Auto) U Epithel Cells (Auto) Urine Mucus Urine Opiates Screen Urine Methadone Screen Ur Barbiturates Screen Ur Phencyclidine Scrn Ur Amphetamines Screen U Benzodiazepines Scrn Urine Cocaine Screen U Marijuana (THC) Screen Drugs of Abuse Note Syphilis IgG/IgM Ab Nonreactive Hep Bs Antigen Non-reactive Hepatitis C Antibody Non-reactive HIV 1&2 Antibody Rapid Non react HIV P24 Antigen Non react Rubella IgG Antibody Immune Blood Type Antibody Screen 09/20/21 09/20/21 Unknown Unknown WBC RBC Hgb Hct MCV MCH MCHC RDW Plt Count Lymph % (Auto) [place] % (Auto) Eos % (Auto) Baso % (Auto) Lymph # (Auto) [place] # (Auto) Eos # (Auto) Baso # (Auto) Seg Neutrophils % Seg Neutrophils # Hemoglobin A1c Urine Color Yellow Urine Turbidity Clear Urine pH 6.0 Ur Specific Delia 1.004 Urine Protein <15 mg/dl Urine Glucose (UA) Neg Urine Ketones Neg Urine Blood Sm Urine Nitrite Neg Urine Bilirubin Neg Urine Urobilinogen < 2.0 Ur Leukocyte Esterase Neg Urine WBC (Auto) 1.0 Urine RBC (Auto) < 1.0 U Epithel Cells (Auto) 2.0 Urine Mucus Few Urine Opiates Screen Negative Urine Methadone Screen Negative Ur Barbiturates Screen Negative Ur Phencyclidine Scrn Negative Ur Amphetamines Screen Negative U Benzodiazepines Scrn Negative Urine Cocaine Screen Negative U Marijuana (THC) Screen Negative Drugs of Abuse Note Disclamer Syphilis IgG/IgM Ab Hep Bs Antigen Hepatitis C Antibody HIV 1&2 Antibody Rapid HIV P24 Antigen Rubella IgG Antibody Blood Type Antibody Screen
[2021-09-20] MEDS ORDERED: AMPICILLIN/NS 1 GM/50 ML 1 GM/50 ML BAG IV SCH (09:00)
[2021-09-20] MEDS ORDERED: GENTAMICIN/NS 100 MG/100 ML 100 MG/100 ML BAG IV SCH ×2 (09:00)
[2021-09-20 09:40] LABS: Albumin 3.2 g/dL (3.9-5); Blood Urea Nitrogen 7 mg/dL (7-17); Calcium 8.9 mg/dL (8.4-10.2); Hemolysis Index 3
[2021-09-20 09:51] LABS: Alanine Aminotransferase < 5 units/L (7-56); BUN/Creatinine Ratio 14
[2021-09-20] MEDS: fentaNYL 100 MCG/2 ML INJ IV PRN ×2 (11:55→14:25)
--- NOTE | 2021-09-20 15:32 | Progress Note ---
Subjective - Subjective Date of service: 09/20/21 Interval history: /0 toco: Q4 minutes will allow for passive descent expect Continue current management Crystal Lim MD Objective - Vital Signs Vital Signs: Vital Signs - 12hr 09/20/21 09/20/21 09/20/21 03:33 03:38 03:43 Temperature Pulse Rate 97 H 82 82 Respiratory Rate Blood Pressure Blood Pressure [Left] O2 Sat by Pulse 98 100 99 Oximetry O2 Sat by Pulse Oximetry [ Throughout] 09/20/21 09/20/21 09/20/21 03:48 03:53 03:58 Temperature Pulse Rate 86 79 79 Respiratory Rate Blood Pressure Blood Pressure [Left] O2 Sat by Pulse 98 99 98 Oximetry O2 Sat by Pulse Oximetry [ Throughout] 09/20/21 09/20/21 09/20/21 04:03 04:36 04:41 Temperature Pulse Rate 85 77 75 Respiratory Rate Blood Pressure Blood Pressure [Left] O2 Sat by Pulse 98 99 98 Oximetry O2 Sat by Pulse Oximetry [ Throughout] 09/20/21 09/20/21 09/20/21 04:43 04:46 04:51 Temperature Pulse Rate 78 86 80 Respiratory Rate Blood Pressure 128/79 Blood Pressure [Left] O2 Sat by Pulse 99 99 Oximetry O2 Sat by Pulse Oximetry [ Throughout] 09/20/21 09/20/21 09/20/21 04:53 04:56 05:01 Temperature 99.2 F Pulse Rate 88 98 H Respiratory Rate Blood Pressure Blood Pressure [Left] O2 Sat by Pulse 99 98 Oximetry O2 Sat by Pulse 99 Oximetry [ Throughout] 09/20/21 09/20/21 09/20/21 05:06 05:11 05:16 Temperature Pulse Rate 91 H 86 81 Respiratory Rate Blood Pressure Blood Pressure [Left] O2 Sat by Pulse 98 98 98 Oximetry O2 Sat by Pulse Oximetry [ Throughout] 09/20/21 09/20/21 09/20/21 05:21 05:26 05:31 Temperature Pulse Rate 93 H 97 H 85 Respiratory Rate Blood Pressure Blood Pressure [Left] O2 Sat by Pulse 98 98 98 Oximetry O2 Sat by Pulse Oximetry [ Throughout] 09/20/21 09/20/21 09/20/21 05:36 05:41 05:46 Temperature Pulse Rate 93 H 85 91 H Respiratory Rate Blood Pressure Blood Pressure [Left] O2 Sat by Pulse 98 98 98 Oximetry O2 Sat by Pulse Oximetry [ Throughout] 09/20/21 09/20/21 09/20/21 05:51 05:56 06:01 Temperature Pulse Rate 91 H 87 91 H Respiratory Rate Blood Pressure Blood Pressure [Left] O2 Sat by Pulse 98 98 98 Oximetry O2 Sat by Pulse Oximetry [ Throughout] 09/20/21 09/20/21 09/20/21 06:06 06:11 06:16 Temperature Pulse Rate 87 76 87 Respiratory Rate Blood Pressure Blood Pressure [Left] O2 Sat by Pulse 98 98 98 Oximetry O2 Sat by Pulse Oximetry [ Throughout] 09/20/21 09/20/21 09/20/21 06:21 06:26 06:31 Temperature Pulse Rate 89 73 87 Respiratory Rate Blood Pressure Blood Pressure [Left] O2 Sat by Pulse 98 99 98 Oximetry O2 Sat by Pulse Oximetry [ Throughout] 09/20/21 09/20/21 09/20/21 06:36 06:41 06:46 Temperature Pulse Rate 98 H 85 79 Respiratory Rate Blood Pressure Blood Pressure [Left] O2 Sat by Pulse 97 98 98 Oximetry O2 Sat by Pulse Oximetry [ Throughout] 09/20/21 09/20/21 09/20/21 06:51 06:56 07:01 Temperature Pulse Rate 88 86 82 Respiratory Rate Blood Pressure Blood Pressure [Left] O2 Sat by Pulse 97 98 99 Oximetry O2 Sat by Pulse Oximetry [ Throughout] 09/20/21 09/20/21 09/20/21 07:06 07:11 07:16 Temperature Pulse Rate 71 78 83 Respiratory Rate Blood Pressure Blood Pressure [Left] O2 Sat by Pulse 98 99 98 Oximetry O2 Sat by Pulse Oximetry [ Throughout] 09/20/21 09/20/21 09/20/21 07:21 07:26 07:31 Temperature Pulse Rate 76 89 84 Respiratory Rate Blood Pressure Blood Pressure [Left] O2 Sat by Pulse 98 97 99 Oximetry O2 Sat by Pulse Oximetry [ Throughout] 09/20/21 09/20/21 09/20/21 07:36 07:41 07:46 Temperature Pulse Rate 90 87 74 Respiratory Rate Blood Pressure Blood Pressure [Left] O2 Sat by Pulse 98 98 98 Oximetry O2 Sat by Pulse Oximetry [ Throughout] 09/20/21 09/20/21 09/20/21 07:51 07:56 08:19 Temperature Pulse Rate 78 90 73 Respiratory Rate Blood Pressure Blood Pressure [Left] O2 Sat by Pulse 98 98 98 Oximetry O2 Sat by Pulse Oximetry [ Throughout] 09/20/21 09/20/21 09/20/21 08:21 08:24 08:29 Temperature 97.9 F Pulse Rate 91 H 68 73 Respiratory 16 Rate Blood Pressure 116/65 Blood Pressure 116/65 [Left] O2 Sat by Pulse 98 99 Oximetry O2 Sat by Pulse 99 Oximetry [ Throughout] 09/20/21 09/20/21 09/20/21 08:34 08:39 08:44 Temperature Pulse Rate 90 77 73 Respiratory Rate Blood Pressure Blood Pressure [Left] O2 Sat by Pulse 98 99 99 Oximetry O2 Sat by Pulse Oximetry [ Throughout] 09/20/21 09/20/21 09/20/21 08:49 08:54 08:59 Temperature Pulse Rate 71 79 76 Respiratory Rate Blood Pressure Blood Pressure [Left] O2 Sat by Pulse 99 97 99 Oximetry O2 Sat by Pulse Oximetry [ Throughout] 09/20/21 09/20/21 09/20/21 09:04 09:09 09:14 Temperature Pulse Rate 91 H 87 88 Respiratory Rate Blood Pressure Blood Pressure [Left] O2 Sat by Pulse 98 98 98 Oximetry O2 Sat by Pulse Oximetry [ Throughout] 09/20/21 09/20/21 09/20/21 09:19 09:24 09:29 Temperature Pulse Rate 83 76 70 Respiratory Rate Blood Pressure Blood Pressure [Left] O2 Sat by Pulse 99 99 99 Oximetry O2 Sat by Pulse Oximetry [ Throughout] 09/20/21 09/20/21 09/20/21 09:34 09:39 09:44 Temperature Pulse Rate 82 80 92 H Respiratory Rate Blood Pressure Blood Pressure [Left] O2 Sat by Pulse 98 97 97 Oximetry O2 Sat by Pulse Oximetry [ Throughout] 09/20/21 09/20/21 09/20/21 09:49 09:54 09:59 Temperature Pulse Rate 90 80 74 Respiratory Rate Blood Pressure Blood Pressure [Left] O2 Sat by Pulse 99 97 98 Oximetry O2 Sat by Pulse Oximetry [ Throughout] 09/20/21 09/20/21 09/20/21 10:04 10:09 10:14 Temperature Pulse Rate 76 94 H 73 Respiratory Rate Blood Pressure Blood Pressure [Left] O2 Sat by Pulse 98 97 97 Oximetry O2 Sat by Pulse Oximetry [ Throughout] 09/20/21 09/20/21 09/20/21 10:19 10:21 10:24 Temperature Pulse Rate 81 81 66 Respiratory Rate Blood Pressure Blood Pressure [Left] O2 Sat by Pulse 96 94 96 Oximetry O2 Sat by Pulse Oximetry [ Throughout] 09/20/21 09/20/21 09/20/21 10:29 10:34 10:39 Temperature Pulse Rate 87 80 88 Respiratory Rate Blood Pressure Blood Pressure [Left] O2 Sat by Pulse 95 96 97 Oximetry O2 Sat by Pulse Oximetry [ Throughout] 09/20/21 09/20/21 09/20/21 10:44 10:49 10:54 Temperature Pulse Rate 79 73 86 Respiratory Rate Blood Pressure Blood Pressure [Left] O2 Sat by Pulse 98 96 96 Oximetry O2 Sat by Pulse Oximetry [ Throughout] 09/20/21 09/20/21 09/20/21 10:59 11:04 11:09 Temperature Pulse Rate 90 87 79 Respiratory Rate Blood Pressure Blood Pressure [Left] O2 Sat by Pulse 98 96 98 Oximetry O2 Sat by Pulse Oximetry [ Throughout] 09/20/21 09/20/21 09/20/21 11:14 11:19 11:24 Temperature Pulse Rate 83 84 77 Respiratory Rate Blood Pressure Blood Pressure [Left] O2 Sat by Pulse 97 96 96 Oximetry O2 Sat by Pulse Oximetry [ Throughout] 09/20/21 09/20/21 09/20/21 11:29 11:34 11:39 Temperature Pulse Rate 86 80 77 Respiratory Rate Blood Pressure Blood Pressure [Left] O2 Sat by Pulse 96 98 97 Oximetry O2 Sat by Pulse Oximetry [ Throughout] 09/20/21 09/20/21 09/20/21 11:44 11:49 11:51 Temperature Pulse Rate 76 80 88 Respiratory Rate Blood Pressure 126/74 Blood Pressure [Left] O2 Sat by Pulse 98 97 Oximetry O2 Sat by Pulse Oximetry [ Throughout] 09/20/21 09/20/21 09/20/21 11:54 11:59 12:00 Temperature 98.1 F Pulse Rate 82 94 H Respiratory Rate Blood Pressure Blood Pressure [Left] O2 Sat by Pulse 98 98 Oximetry O2 Sat by Pulse Oximetry [ Throughout] 09/20/21 09/20/21 09/20/21 12:04 12:09 12:14 Temperature Pulse Rate 82 78 81 Respiratory Rate Blood Pressure Blood Pressure [Left] O2 Sat by Pulse 96 97 97 Oximetry O2 Sat by Pulse Oximetry [ Throughout] 09/20/21 09/20/21 09/20/21 12:19 12:24 12:29 Temperature Pulse Rate 79 80 88 Respiratory Rate Blood Pressure Blood Pressure [Left] O2 Sat by Pulse 96 97 96 Oximetry O2 Sat by Pulse Oximetry [ Throughout] 09/20/21 09/20/21 09/20/21 12:34 12:39 12:44 Temperature Pulse Rate 81 92 H 79 Respiratory Rate Blood Pressure Blood Pressure [Left] O2 Sat by Pulse 97 98 98 Oximetry O2 Sat by Pulse Oximetry [ Throughout] 09/20/21 09/20/21 09/20/21 12:49 12:54 12:59 Temperature Pulse Rate 80 70 75 Respiratory Rate Blood Pressure Blood Pressure [Left] O2 Sat by Pulse 97 96 97 Oximetry O2 Sat by Pulse Oximetry [ Throughout] 09/20/21 09/20/21 09/20/21 13:04 13:09 13:14 Temperature Pulse Rate 90 78 75 Respiratory Rate Blood Pressure Blood Pressure [Left] O2 Sat by Pulse 98 95 96 Oximetry O2 Sat by Pulse Oximetry [ Throughout] 09/20/21 09/20/21 09/20/21 13:19 13:24 13:29 Temperature Pulse Rate 76 80 89 Respiratory Rate Blood Pressure Blood Pressure [Left] O2 Sat by Pulse 97 97 96 Oximetry O2 Sat by Pulse Oximetry [ Throughout] 09/20/21 09/20/21 09/20/21 13:34 13:39 13:44 Temperature Pulse Rate 86 76 76 Respiratory Rate Blood Pressure Blood Pressure [Left] O2 Sat by Pulse 98 97 95 Oximetry O2 Sat by Pulse Oximetry [ Throughout] 09/20/21 09/20/21 09/20/21 13:49 13:54 13:59 Temperature Pulse Rate 78 74 77 Respiratory Rate Blood Pressure Blood Pressure [Left] O2 Sat by Pulse 96 99 98 Oximetry O2 Sat by Pulse Oximetry [ Throughout] 09/20/21 09/20/21 09/20/21 14:04 14:09 14:14 Temperature Pulse Rate 74 83 91 H Respiratory Rate Blood Pressure Blood Pressure [Left] O2 Sat by Pulse 96 98 98 Oximetry O2 Sat by Pulse Oximetry [ Throughout] 09/20/21 09/20/21 09/20/21 14:19 14:24 14:29 Temperature Pulse Rate 81 76 85 Respiratory Rate Blood Pressure Blood Pressure [Left] O2 Sat by Pulse 99 97 98 Oximetry O2 Sat by Pulse Oximetry [ Throughout] 09/20/21 09/20/21 09/20/21 14:34 14:39 14:44 Temperature Pulse Rate 81 82 76 Respiratory Rate Blood Pressure Blood Pressure [Left] O2 Sat by Pulse 96 97 96 Oximetry O2 Sat by Pulse Oximetry [ Throughout] 09/20/21 09/20/21 09/20/21 14:49 14:54 14:59 Temperature Pulse Rate 100 H 83 94 H Respiratory Rate Blood Pressure Blood Pressure [Left] O2 Sat by Pulse 99 96 96 Oximetry O2 Sat by Pulse Oximetry [ Throughout] 09/20/21 09/20/21 09/20/21 15:04 15:09 15:12 Temperature Pulse Rate 80 88 86 Respiratory Rate Blood Pressure Blood Pressure [Left] O2 Sat by Pulse 99 98 90 Oximetry O2 Sat by Pulse Oximetry [ Throughout] 09/20/21 09/20/21 09/20/21 15:14 15:17 15:19 Temperature Pulse Rate 95 H 94 H Respiratory Rate Blood Pressure Blood Pressure [Left] O2 Sat by Pulse 98 54 L 99 Oximetry O2 Sat by Pulse Oximetry [ Throughout] 09/20/21 09/20/21 15:24 15:29 Temperature Pulse Rate 79 74 Respiratory Rate Blood Pressure Blood Pressure [Left] O2 Sat by Pulse 98 95 Oximetry O2 Sat by Pulse Oximetry [ Throughout] - Labs Labs: Abnormal Labs 09/20/21 09/20/21 09/20/21 01:45 09:04 Unknown WBC 11.8 H MCH 26 L RDW 16.1 H Eddy % (Auto) 8.2 H Eddy # (Auto) 1.0 H Seg Neutrophils % 70.8 H Seg Neutrophils # 8.4 H Chloride 108.3 H Carbon Dioxide 20 L Creatinine 0.5 L ALT < 5 L Alkaline Phosphatase 181 H Total Protein 6.2 L Albumin 3.2 L Membranes Rupture Positive A Laboratory Results - last 24 hr 09/20/21 09/20/21 09/20/21 01:45 01:45 05:27 WBC 11.8 H RBC 4.49 Hgb 11.6 Hct 36.2 MCV 81 MCH 26 L MCHC 32 RDW 16.1 H Plt Count 208 Lymph % (Auto) 20.7 Eddy % (Auto) 8.2 H Eos % (Auto) 0.1 Baso % (Auto) 0.2 Lymph # (Auto) 2.5 Eddy # (Auto) 1.0 H Eos # (Auto) 0.0 Baso # (Auto) 0.0 Seg Neutrophils % 70.8 H Seg Neutrophils # 8.4 H Sodium Potassium Chloride Carbon Dioxide Anion Gap BUN Creatinine Estimated GFR BUN/Creatinine Ratio Glucose Hemoglobin A1c 5.5 Calcium Total Bilirubin AST ALT Alkaline Phosphatase Total Protein Albumin Albumin/Globulin Ratio Urine Color Urine Turbidity Urine pH Ur Specific [place] Urine Protein Urine Glucose (UA) Urine Ketones Urine Blood Urine Nitrite Urine Bilirubin Urine Urobilinogen Ur Leukocyte Esterase Urine WBC (Auto) Urine RBC (Auto) U Epithel Cells (Auto) Urine Mucus Membranes Rupture Urine Opiates Screen Urine Methadone Screen Ur Barbiturates Screen Ur Phencyclidine Scrn Ur Amphetamines Screen U Benzodiazepines Scrn Urine Cocaine Screen U Marijuana (THC) Screen Drugs of Abuse Note Syphilis IgG/IgM Ab SARS-CoV-2 (PCR) Hep Bs Antigen Hepatitis C Antibody HIV 1&2 Antibody Rapid HIV P24 Antigen Rubella IgG Antibody Blood Type B POSITIVE Antibody Screen Negative 09/20/21 09/20/21 09/20/21 05:27 05:27 05:27 WBC RBC Hgb Hct MCV MCH MCHC RDW Plt Count Lymph % (Auto) Eddy % (Auto) Eos % (Auto) Baso % (Auto) Lymph # (Auto) Eddy # (Auto) Eos # (Auto) Baso # (Auto) Seg Neutrophils % Seg Neutrophils # Sodium Potassium Chloride Carbon Dioxide Anion Gap BUN Creatinine Estimated GFR BUN/Creatinine Ratio Glucose Hemoglobin A1c Calcium Total Bilirubin AST ALT Alkaline Phosphatase Total Protein Albumin Albumin/Globulin Ratio Urine Color Urine Turbidity Urine pH Ur Specific [place] Urine Protein Urine Glucose (UA) Urine Ketones Urine Blood Urine Nitrite Urine Bilirubin Urine Urobilinogen Ur Leukocyte Esterase Urine WBC (Auto) Urine RBC (Auto) U Epithel Cells (Auto) Urine Mucus Membranes Rupture Urine Opiates Screen Urine Methadone Screen Ur Barbiturates Screen Ur Phencyclidine Scrn Ur Amphetamines Screen U Benzodiazepines Scrn Urine Cocaine Screen U Marijuana (THC) Screen Drugs of Abuse Note Syphilis IgG/IgM Ab Nonreactive SARS-CoV-2 (PCR) Hep Bs Antigen Non-reactive Hepatitis C Antibody Non-reactive HIV 1&2 Antibody Rapid Non react HIV P24 Antigen Non react Rubella IgG Antibody Immune Blood Type Antibody Screen 09/20/21 09/20/21 09/20/21 09:04 Unknown Unknown WBC RBC Hgb Hct MCV MCH MCHC RDW Plt Count Lymph % (Auto) Eddy % (Auto) Eos % (Auto) Baso % (Auto) Lymph # (Auto) Eddy # (Auto) Eos # (Auto) Baso # (Auto) Seg Neutrophils % Seg Neutrophils # Sodium 140 Potassium 3.6 Chloride 108.3 H Carbon Dioxide 20 L Anion Gap 15 BUN 7 Creatinine 0.5 L Estimated GFR > 60 BUN/Creatinine Ratio 14 Glucose 78 Hemoglobin A1c Calcium 8.9 Total Bilirubin 0.30 AST 10 ALT < 5 L Alkaline Phosphatase 181 H Total Protein 6.2 L Albumin 3.2 L Albumin/Globulin Ratio 1.1 Urine Color Yellow Urine Turbidity Clear Urine pH 6.0 Ur Specific [place] 1.004 Urine Protein <15 mg/dl Urine Glucose (UA) Neg Urine Ketones Neg Urine Blood Sm Urine Nitrite Neg Urine Bilirubin Neg Urine Urobilinogen < 2.0 Ur Leukocyte Esterase Neg Urine WBC (Auto) 1.0 Urine RBC (Auto) < 1.0 U Epithel Cells (Auto) 2.0 Urine Mucus Few Membranes Rupture Urine Opiates Screen Negative Urine Methadone Screen Negative Ur Barbiturates Screen Negative Ur Phencyclidine Scrn Negative Ur Amphetamines Screen Negative U Benzodiazepines Scrn Negative Urine Cocaine Screen Negative U Marijuana (THC) Screen Negative Drugs of Abuse Note Disclamer Syphilis IgG/IgM Ab SARS-CoV-2 (PCR) Hep Bs Antigen Hepatitis C Antibody HIV 1&2 Antibody Rapid HIV P24 Antigen Rubella IgG Antibody Blood Type Antibody Screen 09/20/21 09/20/21 Unknown Unknown WBC RBC Hgb Hct MCV MCH MCHC RDW Plt Count Lymph % (Auto) Eddy % (Auto) Eos % (Auto) Baso % (Auto) Lymph # (Auto) Eddy # (Auto) Eos # (Auto) Baso # (Auto) Seg Neutrophils % Seg Neutrophils # Sodium Potassium Chloride Carbon Dioxide Anion Gap BUN Creatinine Estimated GFR BUN/Creatinine Ratio Glucose Hemoglobin A1c Calcium Total Bilirubin AST ALT Alkaline Phosphatase Total Protein Albumin Albumin/Globulin Ratio Urine Color Urine Turbidity Urine pH Ur Specific [place] Urine Protein Urine Glucose (UA) Urine Ketones Urine Blood Urine Nitrite Urine Bilirubin Urine Urobilinogen Ur Leukocyte Esterase Urine WBC (Auto) Urine RBC (Auto) U Epithel Cells (Auto) Urine Mucus Membranes Rupture Positive A Urine Opiates Screen Urine Methadone Screen Ur Barbiturates Screen Ur Phencyclidine Scrn Ur Amphetamines Screen U Benzodiazepines Scrn Urine Cocaine Screen U Marijuana (THC) Screen Drugs of Abuse Note Syphilis IgG/IgM Ab SARS-CoV-2 (PCR) Negative Hep Bs Antigen Hepatitis C Antibody HIV 1&2 Antibody Rapid HIV P24 Antigen Rubella IgG Antibody Blood Type Antibody Screen
[2021-09-20] MEDS ORDERED: PROMETHAZINE 25 MG RECT SUPP PR PRN (17:08)
[2021-09-20] MEDS ORDERED: HYDROcodone/ACETAMINOPHEN 5-325 MG TAB PO PRN (17:08)
[2021-09-20] MEDS ORDERED: oxyCODONE /ACETAMINOPHEN 5-325MG TAB PO PRN (17:08)
[2021-09-20] MEDS ORDERED: KETOROLAC 30 MG/1 ML INJ IV PRN (17:08)
[2021-09-20] MEDS ORDERED: PROMETHAZINE 25 MG TAB PO PRN (17:08)
[2021-09-20] MEDS ORDERED: LANOLIN/ZINC/DIMETHICONE (LANSINOH) 7 GM TP PRN (17:08)
[2021-09-20] MEDS ORDERED: WITCH HAZEL/ GLYCERIN PAD TP PRN (17:08)
[2021-09-20] MEDS ORDERED: ONDANSETRON 4 MG/2 ML INJ IV PRN (17:08)
[2021-09-20] MEDS ORDERED: diphenhydrAMINE 25 MG CAP PO PRN (17:08)
[2021-09-20] MEDS ORDERED: MAGNESIUM HYDROXIDE (MOM) ORAL LIQD UDC PO PRN (17:08)
--- NOTE | 2021-09-20 17:13 | Procedure Note ---
OB Delivery Note - Delivery Date of Delivery: 09/20/21 Surgeon: AMA NEAL Estimated blood loss: other (350ml) - Vaginal Delivery position: OA Intrapartum events: none Delivery induction: oxytocin Delivery augmentation: rupture of membranes Delivery monitor: external FHT, external uterine Route of delivery: Delivery placenta: spontaneous Delivery cord: 3 umbilical vessels Episiotomy: none Delivery laceration: 2nd degree (midline perineal and bilateral periurethral) Delivery repair: vicryl Anesthesia: local Delivery comments: Patient pushed to deliver a viable male over an intact perineum with weight 2870gms and 9/9. Position SAUL, no nuchal cord. Spontaneous cry at delivery. Delivery of the anterior shoulder atraumatic, remainder of delivery uncomplicated. Cord clamped cut and baby handed to waiting [facility] team. Spontaneous delivery of an intact placenta with three-vessel cord. Inspection of the perineum vagina revealed bilateral periurethral lacerations and a midline perineal second-degree laceration all repaired with 2-0 Vicryl in the usual fashion. Firm fundus, EBL 350 mL. All sponge needle and instrument counts correct x2. Mom and baby stable to . Crystal Neal MD
[2021-09-20] MEDS: DOCUSATE SODIUM 100 MG CAP PO SCH (21:42)
[2021-09-20] MEDS: IBUPROFEN 800 MG TAB PO SCH (23:23)
[2021-09-21 04:52] LABS: Hematocrit 30.4 % (30.3-42.9)
[2021-09-21] MEDS: IBUPROFEN 800 MG TAB PO SCH ×2 (05:33→18:44)
--- NOTE | 2021-09-21 09:07 | Progress Note ---
Assessment and Plan A: day 1 S/P spontaneous vaginal . Anemia. Chorioamnionitis during labor. P: Oral iron supplementation. Continue Ampicillin and Gentamicin until 17:00 today; then discontinue both if afebrile and no uterine tenderness. Continue routine care. Subjective - Subjective Date of service: 09/21/21 Principal diagnosis: day 1 S/P Patient reports: appetite normal, voiding normally, pain well controlled, flatus, ambulating normally, no dizzy ambulation, no nauseated [place]: doing well, bottle feeding Objective - Vital Signs Latest vital signs: Vital Signs Temp Pulse Resp BP BP Pulse Ox Pulse Ox 09/21/21 05:28 97 09/21/21 05:00 98.2 F 86 20 113/76 99 09/21/21 04:05 97 09/21/21 02:28 97 09/21/21 00:05 98.2 F 76 18 108/73 100 09/20/21 23:21 98 09/20/21 21:40 98 09/20/21 19:10 98.6 F 84 18 114/64 97 97 09/20/21 18:38 54 L 94 09/20/21 18:34 79 98 09/20/21 18:29 85 99 09/20/21 18:24 84 98 09/20/21 18:19 81 98 09/20/21 18:14 85 97 09/20/21 18:09 81 98 09/20/21 18:04 86 99 09/20/21 17:59 78 99 09/20/21 17:54 84 98 09/20/21 17:53 100 H 89 09/20/21 17:49 95 H 99 09/20/21 17:44 87 93 09/20/21 17:41 84 93 09/20/21 17:39 81 98 09/20/21 17:34 86 98 09/20/21 17:29 98 H 97 09/20/21 17:24 79 97 09/20/21 17:19 89 98 09/20/21 17:14 98 H 98 09/20/21 17:09 94 H 98 09/20/21 17:04 95 H 97 09/20/21 16:59 99 H 98 09/20/21 16:54 102 H 97 09/20/21 16:49 110 H 97 09/20/21 16:44 103 H 98 09/20/21 16:40 121 H 94 09/20/21 16:39 92 H 97 09/20/21 16:34 85 99 09/20/21 16:29 87 99 09/20/21 16:24 88 99 09/20/21 16:22 75 93 09/20/21 16:19 78 99 09/20/21 16:16 80 89 09/20/21 16:14 66 97 09/20/21 16:09 87 98 09/20/21 16:04 84 100 09/20/21 15:59 74 99 09/20/21 15:54 77 99 09/20/21 15:49 75 97 09/20/21 15:44 89 97 09/20/21 15:39 81 96 09/20/21 15:37 68 94 09/20/21 15:34 79 99 09/20/21 15:29 74 95 09/20/21 15:24 79 98 09/20/21 15:19 94 H 99 09/20/21 15:17 54 L 09/20/21 15:14 95 H 98 09/20/21 15:12 86 90 09/20/21 15:09 88 98 09/20/21 15:04 80 99 09/20/21 14:59 94 H 96 09/20/21 14:54 83 96 09/20/21 14:49 100 H 99 09/20/21 14:44 76 96 09/20/21 14:39 82 97 09/20/21 14:34 81 96 09/20/21 14:29 85 98 09/20/21 14:24 76 97 09/20/21 14:19 81 99 09/20/21 14:14 91 H 98 09/20/21 14:09 83 98 09/20/21 14:04 74 96 09/20/21 13:59 77 98 09/20/21 13:54 74 99 09/20/21 13:49 78 96 09/20/21 13:44 76 95 09/20/21 13:39 76 97 09/20/21 13:34 86 98 09/20/21 13:29 89 96 09/20/21 13:24 80 97 09/20/21 13:19 76 97 09/20/21 13:14 75 96 09/20/21 13:09 78 95 09/20/21 13:04 90 98 09/20/21 12:59 75 97 09/20/21 12:54 70 96 09/20/21 12:49 80 97 09/20/21 12:44 79 98 09/20/21 12:39 92 H 98 09/20/21 12:34 81 97 09/20/21 12:29 88 96 09/20/21 12:24 80 97 09/20/21 12:19 79 96 09/20/21 12:14 81 97 09/20/21 12:09 78 97 09/20/21 12:04 82 96 09/20/21 12:00 98.1 F 09/20/21 11:59 94 H 98 09/20/21 11:54 82 98 09/20/21 11:51 88 126/74 09/20/21 11:49 80 97 09/20/21 11:44 76 98 09/20/21 11:39 77 97 09/20/21 11:34 80 98 09/20/21 11:29 86 96 09/20/21 11:24 77 96 09/20/21 11:19 84 96 09/20/21 11:14 83 97 09/20/21 11:09 79 98 09/20/21 11:04 87 96 09/20/21 10:59 90 98 09/20/21 10:54 86 96 09/20/21 10:49 73 96 09/20/21 10:44 79 98 09/20/21 10:39 88 97 09/20/21 10:34 80 96 09/20/21 10:29 87 95 09/20/21 10:24 66 96 09/20/21 10:21 81 94 09/20/21 10:19 81 96 09/20/21 10:14 73 97 09/20/21 10:09 94 H 97 09/20/21 10:04 76 98 09/20/21 09:59 74 98 09/20/21 09:54 80 97 09/20/21 09:49 90 99 09/20/21 09:44 92 H 97 09/20/21 09:39 80 97 09/20/21 09:34 82 98 09/20/21 09:29 70 99 09/20/21 09:24 76 99 09/20/21 09:19 83 99 09/20/21 09:14 88 98 09/20/21 09:09 87 98 Intake and Output 09/20/21 09/21/21 09/21/21 23:59 07:59 15:59 Intake Total 241.333 Output Total 600 Balance -358.667 Intake: IV 1.333 PITOCin/NS 30 UNIT/500ML 1.333 30 units In 500 ml @ 2 mls/hr IV TITR JAMEE Rx#: [id number] Oral 240 Output: Urine 600 Void 600 Other: Total, Intake Amount 240 Total, Output Amount 600 Estimated Blood Loss 350 - Exam Cardiovascular: Present: Regular rate, No murmurs Lungs: Present: Clear to auscultation Abdomen: Present: normal appearance, soft. Absent: distention, tenderness, guarding, rigidity Uterus: Present: normal, firm, fundal height below umbilicus. Absent: bogginess, tenderness Extremities: Absent: tenderness, edema - Labs Labs: Abnormal lab results 09/20/21 09/20/21 09/21/21 Range/Units 09:04 Unknown 03:45 Hgb 10.0 L (10.1-14.3) gm/dl Chloride 108.3 H (98-107) mmol/L Carbon Dioxide 20 L (22-30) mmol/L Creatinine 0.5 L (0.6-1.2) mg/dL ALT < 5 L (7-56) units/L Alkaline Phosphatase 181 H (35-129) units/L Total Protein 6.2 L (6.3-8.2) g/dL Albumin 3.2 L (3.9-5) g/dL Membranes Rupture Positive A (Negative)
[2021-09-21] MEDS ORDERED: BENZOCAINE/MENTHOL 20/0.5% TOP SPRAY 56 GM TP PRN (10:00)
[2021-09-21] MEDS: SENNOSIDES/DOCUSATE SODIUM 8.6/50 MG TAB PO SCH (18:44)
--- NOTE | 2021-09-21 19:22 | Event Note ---
Date: 09/21/21 Patient reports right leg pain. No SOB or chest pain. Venous doppler of RLE ordered.
--- NOTE | 2021-09-21 20:45 | Vascular Lab Report ---
DUPLEX DOPPLER LOWER EXTREMITY VEINS, RIGHT INDICATION: Right leg pain. TECHNIQUE: Duplex doppler imaging was performed through the veins of the right lower extremity using venous comp ression and other maneuvers. COMPARISON: None available. FINDINGS: Common Femoral vein: Negative. Superficial Femoral vein: Negative. Popliteal vein: Negative. Calf veins: Negative. Additional findings: None. IMPRESSION: 1. No sonographic evidence for DVT in the right lower extremity. Signer Name: Brock Armstrong MD Signed: 09/21/2021 8:41 PM Workstation Name: [id number]
[2021-09-21] MEDS: FERROUS SULFATE 325 MG TAB PO SCH (22:29)
[2021-09-21] MEDS: DOCUSATE SODIUM 100 MG CAP PO SCH (22:29)
[2021-09-22] MEDS: IBUPROFEN 800 MG TAB PO SCH ×2 (01:26→06:37)
[2021-09-22] MEDS: SENNOSIDES/DOCUSATE SODIUM 8.6/50 MG TAB PO SCH (06:41)
--- NOTE | 2021-09-22 07:38 | Progress Note ---
Assessment and Plan A: day 2 S/P . Anemia. P: Discharge patient home today. Discussed with patient discharge instructions and warning signs. Advised patient to continue taking her vitamin and iron supplement at home. Advised patient to avoid intercourse, lifting, and housework. Advised patient to follow up at [facility] office in 2 weeks. Patient voiced understanding of all instructions. Subjective - Subjective Date of service: 09/22/21 Principal diagnosis: day 2 S/P Interval history: Patient desires discharge home today. Venous ultrasound of RLE negative and patient states right leg pain has resolved. Patient reports: appetite normal, voiding normally, pain well controlled, flatus, ambulating normally, no dizzy ambulation, no nauseated : doing well Objective - Vital Signs Latest vital signs: Vital Signs Temp Pulse Resp BP Pulse Ox Pulse Ox 09/21/21 23:46 98.8 F 68 18 103/65 99 09/21/21 20:30 100 09/21/21 15:57 98.0 F 72 17 107/75 100 09/21/21 12:25 98.6 F 81 18 102/59 97 09/21/21 08:30 98 09/21/21 08:21 98.6 F 73 16 120/77 98 Intake and Output 09/21/21 09/21/21 09/22/21 15:59 23:59 07:59 Intake Total 480 1200 240 Output Total 500 450 Balance -20 750 240 Intake: Oral 480 840 Intake, Free Water 360 240 Output: Urine 500 450 Void 500 450 Other: Total, Intake Amount 240 360 Total, Output Amount 500 450 # Voids Void 2 2 - Exam Cardiovascular: Present: Regular rate, No murmurs Lungs: Present: Clear to auscultation Abdomen: Present: normal appearance, soft. Absent: distention, tenderness, guarding Uterus: Present: normal, firm, fundal height below umbilicus. Absent: bogginess, tenderness Extremities: Absent: tenderness, edema
--- NOTE | 2021-09-22 07:43 | Discharge Summary ---
Providers - Providers Date of Admission: 09/20/21 04:00 Date of discharge: 09/22/21 Attending physician: AMA NEAL MD Primary care physician: AMA NEAL MD Hospitalization Reason for admission: induction of labor, other (oligohydramnios) Delivery: Laceration: 2nd degree Other procedures: none complications: none Discharge diagnosis: IUP at term delivered baby: male Pertinent studies: Labs, ultrasound Hospital course: Stable hospital course Condition at discharge: Good Disposition: 01 HOME / SELF CARE / HOMELESS - Discharge Diagnoses (1) Term delivered Status: Acute (2) Anemia Status: Acute Plan - Discharge Medications Prescriptions: Ibuprofen [Motrin] 600 mg PO Q8H PRN #60 tablet PRN Reason: Pain - Provider Discharge Summary Activity: routine, no sex for 6 weeks, no heavy lifting 4 weeks, no strenuous exercise Diet: routine Instructions: routine Additional instructions: Continue taking your vitamin and iron supplements at home. Follow up at [facility] in 2 weeks. Call your doctor immediately for: * Fever > 100.5 * Heavy vaginal bleeding ( >1 pad per hour) * Severe persistent headache * Shortness of breath * Reddened, hot, painful area to leg or breast - Follow up plan Follow up: AMA NEAL MD [Primary Care Provider] - 14 Days
[2021-09-22] MEDS: FERROUS SULFATE 325 MG TAB PO SCH (10:20)
[2021-09-22] MEDS: DOCUSATE SODIUM 100 MG CAP PO SCH (10:20)
[2021-09-22 13:08] VITALS: BP 115/74
== END 2021-09-22 14:05 | disposition home or self-care (01) | DRG 775 ==
LOC: TRG 00:25 → APU 00:26 → LD 04:00 → TRG 04:00 → LD 04:35 → OB 19:28
PROVIDERS: ADMIT Obstetrics & Gynecology; ATTEND Obstetrics & Gynecology
PROC: 10E0XZZ Delivery of Products of Conception, External Approach (ICD-10-PCS; principal; 2021-09-20)
PROC: 0KQM0ZZ Repair Perineum Muscle, Open Approach (ICD-10-PCS; 2021-09-20)
PROC: 10907ZC Drainage of Amniotic Fluid, Therapeutic from Products of Conception, Via Natural or Artificial Opening (ICD-10-PCS; 2021-09-20)
DX: O41.03X0 Oligohydramnios, third trimester, not applicable or unspecified (principal); O36.5930 Maternal care for other known or suspected poor fetal growth, third trimester, not applicable or unspecified; O41.1230 Chorioamnionitis, third trimester, not applicable or unspecified; O70.1 Second degree perineal laceration during delivery; Z3A.39 39 weeks gestation of pregnancy; Z37.0 Single live birth; Z20.822 Contact with and (suspected) exposure to COVID-19; O90.81 Anemia of the puerperium
CPT/HCPCS: 36415; 59025; 76815; 76816; 76819; 80053; 80307; 81001; 83036; 84112; 85014; 85018; 85025; 86592; 86706; 86762; 86803; 86850; 86900; 86901; 87086; 87806; 99211; G0378; J3490; G0463; J0290; J1580; J2300; J2590; J3010; J7120; U0003